=== PATIENT | male | born 1945 | race Caucasian/White ===

== ENCOUNTER 2019-04-14 12:46 | Inpatient (IN) | payer OTHER ==
[~2019-04-14] VITALS: Ht 25.4 cm; Wt 5.0 kg
[2019-04-14] MEDS ORDERED: LIPITOR40 MG (13:33)
[2019-04-14] MEDS ORDERED: TOPROL XL200 MG (13:33)
[2019-04-14] MEDS ORDERED: COZAAR50 MG (13:33)
[2019-04-14] MEDS ORDERED: HUMALOG100 UNIT/1 (13:34)
[2019-04-14] MEDS ORDERED: APIDRA100 UNIT/1 (13:34)
[2019-04-14] MEDS ORDERED: ARICEPT5 MG (13:34)
[2019-04-14] MEDS ORDERED: INVOKANA100 MG (13:34)
[2019-04-14] MEDS ORDERED: COUMADIN5 MG (13:34)
[2019-04-14] MEDS ORDERED: LANTUS SOL100 UNIT/1 (13:35)
== END 2019-04-18 07:20 | disposition home or self-care (01) | DRG 445 ==
LOC: ER 12:46 → MEDJ 04-15 08:51
PROVIDERS: ADMIT Internal Medicine Cardiovascular Disease
PROC: BW40ZZZ Ultrasonography of Abdomen (ICD-10-PCS; principal; 2019-04-15)
PROC: 8E0ZXY6 Isolation (ICD-10-PCS; 2019-04-15)
DX: K80.80 Other cholelithiasis without obstruction (principal); N39.0 Urinary tract infection, site not specified; I48.0 Paroxysmal atrial fibrillation; R31.29 Other microscopic hematuria; E13.9 Other specified diabetes mellitus without complications; N40.0 Benign prostatic hyperplasia without lower urinary tract symptoms; N28.1 Cyst of kidney, acquired; Z79.01 Long term (current) use of anticoagulants; Z79.4 Long term (current) use of insulin